=== PATIENT | male | born 1980 | race Hispanic/Latino ===

== ENCOUNTER 2019-04-20 09:54 | Emergency (ER) | payer SELFPAY ==
[2019-04-20] MEDS ORDERED: PANTOPRAZOLE 40 MG INJ IV ONE (11:28)
[2019-04-20] MEDS ORDERED: hydrALAZINE 20 MG/1 ML INJ IV ONE ×2 (11:29→13:00)
--- NOTE | 2019-04-20 11:33 | Emergency Department Report ---
HPI - General Chief Complaint: Abdominal Pain Time Seen by Provider: 04/20/19 11:13 - HPI HPI: 38-year-old male presents to the emergency department with a complaint of upper abdominal pain/pressure, nausea and vomiting and this morning he had an episode of hematemesis. The patient says that he vomited "bright red blood and bile." He has had 2 episodes of vomiting in the past 24 hours. Overall he says that his "abdominal issues" have been going on for the past few weeks. He has a past mental history of hypertension and obstructive sleep apnea for which he uses a CPAP machine. The patient does present with elevated blood pressure and admits to medication noncompliance. He has a very occasional tobacco smoker. He has not taken anything for her symptoms prior to presentation. He goes to [facility]. ED Past Medical Hx - Past Medical History Hx Hypertension: Yes Hx CVA: No Hx Heart Attack/AMI: No Hx Congestive Heart Failure: No Hx Diabetes: No Hx Deep Vein Thrombosis: No Hx Pulmonary Embolism: No Hx GERD: No Hx Liver Disease: No Hx Renal Disease: No Hx Sickle Cell Disease: No Hx Arthritis: No Hx Headaches / Migraines: No Hx Seizures: No Hx Kidney Stones: No Hx Psychiatric Treatment: No Hx Asthma: No Hx COPD: No Hx Tuberculosis: No Hx Dementia: No Hx HIV: No Additional medical history: SLEEP APNEA - Surgical History Hx Coronary Stent: No Hx Open Heart Surgery: No Hx Pacemaker: No Hx Internal Defibrillator: No Hx Cholecystectomy: No Hx Appendectomy: No Hx Breast Surgery: No Additional Surgical History: titanium plates and mesh in face - Social History Smoking Status: Current Some Day Smoker Substance Use Type: Alcohol - Medications Home Medications: Home Medications Medication Instructions Recorded Confirmed Last Taken Type Lisinopril/Hydrochlorothiazide 1 each PO DAILY #30 tablet 08/24/13 Unknown Rx [Zestoretic 20-25 mg] carvediloL [Coreg] 3.125 mg PO BID #60 tablet 08/24/13 Unknown Rx Loperamide [Imodium] 2 mg PO Q2HR PRN #15 capsule 12/26/14 Unknown Rx Ondansetron [Zofran TAB] 4 mg PO Q8HR PRN #21 tablet 12/26/14 Unknown Rx levoFLOXacin [Levaquin TAB] 500 mg PO QDAY #10 tablet 12/26/14 Unknown Rx metroNIDAZOLE [Flagyl TAB] 500 mg PO Q12HR #20 tab 12/26/14 Unknown Rx Cyclobenzaprine HCl [Flexeril 5 MG 5 mg PO TID #20 tab 10/20/15 Unknown Rx TAB] Ibuprofen [Motrin 800 MG tab] 800 mg PO Q8HR PRN #30 tablet 10/20/15 Unknown Rx Omeprazole 20 mg PO QDAY #20 capsule. 04/20/19 Unknown Rx Ondansetron [Zofran Odt] 4 mg PO Q8HR PRN #15 tab.rapdis 04/20/19 Unknown Rx hydroCHLOROthiazide [HCTZ] 25 mg PO QDAY #30 tablet 04/20/19 Unknown Rx lisinopriL [Zestril TAB] 20 mg PO QDAY #30 tablet 04/20/19 Unknown Rx ED Review of Systems ROS: Stated complaint: NAUSEA/ABD PRESSURE/PAIN Other details as noted in HPI Comment: All other systems reviewed and negative Constitutional: denies: chills, fever Eyes: denies: eye pain, vision change ENT: denies: ear pain, throat pain Respiratory: denies: cough, shortness of breath Cardiovascular: denies: chest pain Gastrointestinal: abdominal pain, nausea, vomiting, hematemesis Genitourinary: denies: dysuria, discharge Musculoskeletal: denies: back pain, arthralgia Skin: denies: rash, lesions Neurological: denies: headache, weakness Physical Exam - Physical Exam Vital Signs: Vital Signs 04/20/19 04/20/19 10:17 10:20 Temperature 97.8 F Pulse Rate 94 H Respiratory 16 Rate Blood Pressure 193/132 [Right] O2 Sat by Pulse 98 Oximetry Physical Exam: GENERAL: The patient is well-developed well-nourished. HEENT: Normocephalic. Atraumatic. Patient has moist mucous membranes. EYES: Extraocular motions are intact. NECK: Supple. Trachea is midline. CHEST/LUNGS: Clear to auscultation. There is no respiratory distress noted. HEART/CARDIOVASCULAR: Regular. There is no tachycardia. There is no murmur. ABDOMEN: Abdomen is soft. Mild generalized abdominal tenderness to palpation. No guarding. Patient has normal bowel sounds. There is no abdominal distention. SKIN:Skin is warm and dry. . NEURO: The patient is awake, alert, and oriented. The patient is cooperative. The patient has no focal neurologic deficits. Normal speech. MUSCULOSKELETAL: There is no tenderness or deformity. There is no evidence of acute injury. ED Course Vital Signs 04/20/19 04/20/19 10:17 10:20 Temperature 97.8 F Pulse Rate 94 H Respiratory 16 Rate Blood Pressure 193/132 [Right] O2 Sat by Pulse 98 Oximetry ED Medical Decision Making - Lab Data Result diagrams: 04/20/19 11:34 04/20/19 11:34 - EKG Data -: EKG Interpreted by Me EKG shows normal: sinus rhythm, axis, intervals (prolonged QTC), QRS complexes, ST-T waves Rate: normal - EKG Data When compared to previous EKG there are: previous EKG unavailable Interpretation: other (prolonged QTC. No ST elevation DC) - Radiology Data Radiology results: image reviewed interpreted by me: Abdominal x-ray shows nonspecific nonobstructive bowel gas - Medical Decision Making This patient presents to the emergency department with a complaint of some abdominal pain, nausea and vomiting and an episode of hematemesis, which is what brought him in to be seen today. Overall the abdominal pain, nausea and vomiting have been going on intermittently over the past few weeks. He also presents with elevated blood pressure and admission to medication noncompliance. The patient had a mild leukocytosis of 13,000 but otherwise the rest of his labs are unremarkable including CBC, metabolic panel and urinalysis. Abdominal x-ray shows nonspecific nonobstructive bowel gas. Patient was given some Protonix and Zofran. Patient was also given a few doses of hydralazine for his blood pressure. The blood pressure did improve. Patient was reevaluated multiple times and appears to be resting comfortably. His abdomen is soft, nondistended and nontoxic in appearance. There is been no further episodes of nausea, vomiting or hematemesis. He appears safe for discharge home at this time. He'll be given a refill of his blood pressure medications, lisinopril and HCTZ. He was given a dose of HCTZ prior to discharge. He'll be given a prescription for Zofran and omeprazole. He will be given a referral for gastroenterology. He will return to the emergency Department with any worsening of his symptoms or any acute distress. Appendicitis talk given. - Differential Diagnosis gastritis, colitis, GERD, Laura-De León tear, malignancy Critical Care Time: No Critical care attestation.: If time is entered above; I have spent that time in minutes in the direct care of this critically ill patient, excluding procedure time. ED Disposition Clinical Impression: Noncompliance with medication regimen Hypertension Qualifiers: Hypertension type: essential hypertension Qualified Code(s): I10 - Essential (primary) hypertension Abdominal pain Qualifiers: Abdominal location: generalized Qualified Code(s): R10.84 - Generalized abdominal pain Nausea & vomiting Qualifiers: Vomiting type: unspecified Vomiting Intractability: non-intractable Qualified Code(s): R11.2 - Nausea with vomiting, unspecified Disposition: DC- TO HOME OR SELFCARE Is pt being admited?: No Condition: Stable Instructions: Acute Nausea and Vomiting (ED), Abdominal Pain (ED), Hypertension (ED) Additional Instructions: Please follow up with a primary care physician in the next few days. I'm giving you a referral for [place] [facility] to follow up regarding your abdominal pain and the episode of blood in your vomit. Please return to the emergency department immediately with any recurrence of this, worsening of your symptoms, or with any acute distress. Please try and stay away from foods that are high in salt caffeinated products. Keep a blood pressure log. I am restarting you on your blood pressure medications. Prescriptions: hydroCHLOROthiazide [HCTZ] 25 mg PO QDAY #30 tablet Omeprazole 20 mg PO QDAY #20 capsule. lisinopriL [Zestril TAB] 20 mg PO QDAY #30 tablet Ondansetron [Zofran Odt] 4 mg PO Q8HR PRN #15 tab.rapdis PRN Reason: Nausea Referrals: [facility] [Outside] - 2-3 Days [facility] [Provider Group] - 2-3 Days Time of Disposition: 14:46
[2019-04-20 11:37] LABS: Basophils # (Auto) 0.1 K/mm3 (0.0-0.1); Basophils % (Auto) 0.6 % (0.0-1.8); Eosinophils # (Auto) 0.1 K/mm3 (0.0-0.4); Eosinophils % (Auto) 0.5 % (0.0-4.3); Hematocrit 44.9 % (35.5-45.6); Hemoglobin 15.2 gm/dl (11.8-15.2); Lymphocytes # (Auto) 2.4 K/mm3 (1.2-5.4); Lymphocytes % (Auto) 17.9 % (13.4-35.0); Mean Corpuscular HGB Conc 34 % (32-34); Mean Corpuscular Volume 79 fl (84-94); Monocytes # (Auto) 0.8 K/mm3 (0.0-0.8); Monocytes % (Auto) 5.6 % (0.0-7.3); Platelet Count 341 K/mm3 (140-440); Red Cell Distribution Width 14.3 % (13.2-15.2)
[2019-04-20 11:39] LABS: Bacteria,Urine 4+ /HPF (Negative); Bilirubin,Urine NEG (Negative); Blood,Urine NEG (Negative); Color,Urine Yellow (Yellow); Mucus,Urine 1+ /HPF; Protein,Urine <15 mg/dL mg/dL (Negative); Urobilinogen,Urine < 2.0 mg/dL (<2.0)
[2019-04-20 11:49] LABS: INR 0.98 (0.87-1.13); Partial Thromboplastin Time 27.5 Sec. (24.2-36.6)
[2019-04-20 11:59] LABS: Alanine Aminotransferase 43 units/L (7-56); Albumin 4.3 g/dL (3.9-5); BUN/Creatinine Ratio 9; Blood Urea Nitrogen 9 mg/dL (9-20); Calcium 9.4 mg/dL (8.4-10.2); Hemolysis Index 8
[2019-04-20 12:09] LABS: Bilirubin,Direct < 0.2 mg/dL (0-0.2)
--- NOTE | 2019-04-20 12:52 | XRay Report ---
ABDOMEN 2 VIEW(S) WITH PA CHEST INDICATION / CLINICAL INFORMATION: abd pain. COMPARISON: None available. FINDINGS: CHEST X-RAY: No acute cardiopulmonary abnormality. TUBES / LINES: None. BOWEL GAS PATTERN/EXTRALUMINAL GAS: No significant abnormality. No pneumatosis or secondary signs of free air. ADDITIONAL FINDINGS: No significant additional findings. IMPRESSION: 1. No significant abnormality. Signer Name: You Lisa MD Signed: 04/20/2019 12:48 PM Workstation Name: [id number]
[2019-04-20] MEDS ORDERED: ONDANSETRON 4 MG/2 ML INJ IV ONE (13:15)
[2019-04-20] MEDS ORDERED: hydroCHLOROthiazide 25 MG TAB PO ONE (14:47)
[2019-04-20 15:17] VITALS: BP 182/117
== END 2019-04-20 15:00 | disposition home or self-care (01) ==
LOC: ED 09:54
DX: R10.84 Generalized abdominal pain (principal); R11.2 Nausea with vomiting, unspecified; Z91.14 Patient's other noncompliance with medication regimen; I10 Essential (primary) hypertension
CPT/HCPCS: 36415; 74022; 80048; 80076; 81001; 83690; 85025; 85610; 85730; 93005; 93010; 96374; 96375; 96376; 99284; C9113; J0360; J2405

== ENCOUNTER 2020-06-27 02:24 | Emergency (ER) | payer SELFPAY ==
[2020-06-27] MEDS ORDERED: KETOROLAC 30 MG/1 ML INJ IV ONE (03:40)
[2020-06-27] MEDS ORDERED: dexAMETHasone 20 MG/5 ML VIAL IV ONE (03:40)
--- NOTE | 2020-06-27 03:46 | Emergency Department Report ---
<WOODY ESCALANTE - Last Filed: 06/27/20 03:42> ED General Adult HPI - General Chief complaint: Sore Throat Stated complaint: ANTWON/THROAT PAIN/SWOLLEN Source: patient Mode of arrival: Ambulatory Limitations: No Limitations - History of Present Illness Initial comments: Patient is a 39-year-old white male with a history of morbid obesity, hypertension and sleep apnea who presents to the ED with complaint of acute onset persistent severe sore throat with dysphagia, swollen tonsils and swollen painful anterior right cervical lymph nodes for the last 1 week. Patient states that he has been on liquid diet for the last 3 days and that about 3 hours ago he was unable to sleep because of worsening sore throat and dysphagia. Patient states that he could not even use his CPAP at home because of sore throat and worsening shortness of breath. Patient denies headache, dizziness, fever, chills, nausea, vomiting, chest pain, shortness of breath, cough, abdominal pain, traumatic injury or change in vision, nasal and sinus congestion MD Complaint: Sore throat, dysphagia, right anterior cervical lymph node swelling -: Sudden, week(s) (1) Location: mouth Radiation: non-radiation Severity scale (0 -10): 8 Quality: aching, sharp Consistency: constant Improves with: none Worsens with: eating Associated Symptoms: denies other symptoms. denies: confusion, chest pain, cough, diaphoresis, fever/chills, headaches, loss of appetite, malaise, nausea/vomiting, rash, seizure, shortness of breath, syncope, weakness Treatments Prior to Arrival: none - Related Data Previous Rx's Medication Instructions Recorded Last Taken Type Lisinopril/Hydrochlorothiazide 1 each PO DAILY #30 tablet 08/24/13 Unknown Rx [Zestoretic 20-25 mg] carvediloL [Coreg] 3.125 mg PO BID #60 tablet 08/24/13 Unknown Rx Loperamide [Imodium] 2 mg PO Q2HR PRN #15 capsule 12/26/14 Unknown Rx Ondansetron [Zofran TAB] 4 mg PO Q8HR PRN #21 tablet 12/26/14 Unknown Rx levoFLOXacin [Levaquin TAB] 500 mg PO QDAY #10 tablet 12/26/14 Unknown Rx metroNIDAZOLE [Flagyl TAB] 500 mg PO Q12HR #20 tab 12/26/14 Unknown Rx Cyclobenzaprine HCl [Flexeril 5 MG 5 mg PO TID #20 tab 10/20/15 Unknown Rx TAB] Ibuprofen [Motrin 800 MG tab] 800 mg PO Q8HR PRN #30 tablet 10/20/15 Unknown Rx Omeprazole 20 mg PO QDAY #20 capsule. 04/20/19 Unknown Rx Ondansetron [Zofran Odt] 4 mg PO Q8HR PRN #15 tab.rapdis 04/20/19 Unknown Rx hydroCHLOROthiazide [HCTZ] 25 mg PO QDAY #30 tablet 04/20/19 Unknown Rx lisinopriL [Zestril TAB] 20 mg PO QDAY #30 tablet 04/20/19 Unknown Rx Allergies Allergy/AdvReac Type Severity Reaction Status Date / Time No Known Allergies Allergy Verified 10/19/15 21:46 ED Review of Systems Constitutional: denies: chills, fever Eyes: denies: eye pain, eye discharge, vision change ENT: throat pain, other (Dysphagia and dysphonia). denies: ear pain Respiratory: denies: cough, shortness of breath, SOB with exertion, wheezing Cardiovascular: denies: chest pain, palpitations Endocrine: no symptoms reported Gastrointestinal: denies: abdominal pain, nausea, vomiting, diarrhea Genitourinary: denies: urgency, dysuria, frequency Musculoskeletal: denies: back pain, joint swelling, arthralgia Skin: denies: rash, lesions Neurological: denies: headache, weakness, paresthesias Psychiatric: denies: anxiety, depression Hematological/Lymphatic: denies: easy bleeding, easy bruising ED Past Medical Hx - Past Medical History Hx Hypertension: Yes Hx CVA: No Hx Heart Attack/AMI: No Hx Congestive Heart Failure: No Hx Diabetes: No Hx Deep Vein Thrombosis: No Hx Pulmonary Embolism: No Hx GERD: No Hx Liver Disease: No Hx Renal Disease: No Hx Sickle Cell Disease: No Hx Arthritis: No Hx Headaches / Migraines: No Hx Seizures: No Hx Kidney Stones: No Hx Psychiatric Treatment: No Hx Asthma: No Hx COPD: No Hx Tuberculosis: No Hx Dementia: No Hx HIV: No Additional medical history: SLEEP APNEA - Surgical History Hx Coronary Stent: No Hx Open Heart Surgery: No Hx Pacemaker: No Hx Internal Defibrillator: No Hx Cholecystectomy: No Hx Appendectomy: No Hx Breast Surgery: No Additional Surgical History: titanium plates and mesh in face - Social History Smoking Status: Never Smoker - Medications Home Medications: Home Medications Medication Instructions Recorded Confirmed Last Taken Type Lisinopril/Hydrochlorothiazide 1 each PO DAILY #30 tablet 08/24/13 Unknown Rx [Zestoretic 20-25 mg] carvediloL [Coreg] 3.125 mg PO BID #60 tablet 08/24/13 Unknown Rx Loperamide [Imodium] 2 mg PO Q2HR PRN #15 capsule 12/26/14 Unknown Rx Ondansetron [Zofran TAB] 4 mg PO Q8HR PRN #21 tablet 12/26/14 Unknown Rx levoFLOXacin [Levaquin TAB] 500 mg PO QDAY #10 tablet 12/26/14 Unknown Rx metroNIDAZOLE [Flagyl TAB] 500 mg PO Q12HR #20 tab 12/26/14 Unknown Rx Cyclobenzaprine HCl [Flexeril 5 MG 5 mg PO TID #20 tab 10/20/15 Unknown Rx TAB] Ibuprofen [Motrin 800 MG tab] 800 mg PO Q8HR PRN #30 tablet 10/20/15 Unknown Rx Omeprazole 20 mg PO QDAY #20 capsule.dr 04/20/19 Unknown Rx Ondansetron [Zofran Odt] 4 mg PO Q8HR PRN #15 tab.rapdis 04/20/19 Unknown Rx hydroCHLOROthiazide [HCTZ] 25 mg PO QDAY #30 tablet 04/20/19 Unknown Rx lisinopriL [Zestril TAB] 20 mg PO QDAY #30 tablet 04/20/19 Unknown Rx ED Physical Exam - General Limitations: No Limitations General appearance: alert, in no apparent distress, obese - Head Head exam: Present: atraumatic, normocephalic, normal inspection - Eye Eye exam: Present: normal appearance, PERRL, EOMI Pupils: Present: normal accommodation - ENT ENT exam: Present: mucous membranes moist, TM's normal bilaterally, normal external ear exam, other (Swollen, erythematous bilateral tonsils and oropharynx) - Neck Neck exam: Present: normal inspection, full ROM, lymphadenopathy (Anterior cervical lymphadenopathy) - Respiratory Respiratory exam: Present: normal lung sounds bilaterally. Absent: respiratory distress, wheezes, rales, rhonchi, chest wall tenderness, accessory muscle use - Cardiovascular Cardiovascular Exam: Present: normal rhythm, tachycardia, normal heart sounds. Absent: systolic murmur, diastolic murmur, rubs, gallop - GI/Abdominal GI/Abdominal exam: Present: soft, normal bowel sounds. Absent: distended, tenderness, guarding, rebound, hyperactive bowel sounds, hypoactive bowel sounds - Extremities Exam Extremities exam: Present: normal inspection, full ROM, normal capillary refill - Back Exam Back exam: Present: normal inspection, full ROM. Absent: tenderness, CVA tenderness (R), CVA tenderness (L), muscle spasm, paraspinal tenderness - Neurological Exam Neurological exam: Present: alert, oriented X3, CN II-XII intact, normal gait, reflexes normal - Psychiatric Psychiatric exam: Present: normal affect, normal mood, anxious - Skin Skin exam: Present: warm, dry, intact, normal color. Absent: rash ED Medical Decision Making - Medical Decision Making This is a 39-year-old white male with a history of morbid obesity, hypertension and sleep apnea who presents to the ED with complaint of acute onset persistent severe sore throat with dysphagia, swollen tonsils and swollen painful anterior right cervical lymph nodes for the last 1 week. Patient states that he has been on liquid diet for the last 3 days and that about 3 hours ago he was unable to sleep because of worsening sore throat and dysphagia. Patient states that he could not even use his CPAP at home because of sore throat and worsening shortness of breath. In the ED, patient is alert and oriented x3 and is not in distress but anxious and tachycardic in triage. Patient was treated with Decadron, Toradol and also started on clindamycin 900 mg IV x1. Patient also received normal saline 1 L IV bolus x1. Basic labs are drawn and soft tissue neck CT scan with contrast was also ordered. - Differential Diagnosis Peritonsillar abscess; strep pharyngitis; bacterial tonsillitis; allergy ED Disposition Clinical Impression: Acute bacterial pharyngitis, Anterior cervical lymphadenopathy, Acute bacterial tonsillitis, Peritonsillar abscess Disposition: DC/TX-70 ANOTHER TYPE HLTHCARE Is pt being admited?: No Does the pt Need Aspirin: No Condition: Stable Instructions: Peritonsillar Abscess <ANANAY SETHI - Last Filed: 06/27/20 09:51> ED Review of Systems ROS: Stated complaint: ANTWON/THROAT PAIN/SWOLLEN Other details as noted in HPI ED Course Vital Signs 06/27/20 02:28 Temperature 98.4 F Pulse Rate 117 H Respiratory 18 Rate Blood Pressure 200/123 O2 Sat by Pulse 96 Oximetry - Reevaluation(s) Reevaluation #1: 06/27/20 09:50 After multiple attempts to drain the peritonsillar abscess that were unsuccessful I discussed the case with the ENT Dr. Khanna who agreed to see the patient in the ER at [facility]. Patient was agreeable to this transfer. He had already been given IV steroids, antibiotics, Toradol and is still tolerating his secretions well. - Consultations Consultation #1: 06/27/20 09:[address] [place] [address] Khanna (ENT) he agreed to see the patient in consult and requested we sent him to [facility] ED. Consultation #2: 06/27/20 09:[address] Rasmussen (ED) she accepted patient to their ED for ENT evaluation. - I & D Right Type of Procedure: Complex Site: right peritonsilar Blade Size: 18G needle Progress: patient tolerated ED Medical Decision Making - Lab Data Result diagrams: 06/27/20 03:40 06/27/20 03:40 Lab Results 06/27/20 06/27/20 06/27/20 Range/Units 03:40 03:40 06:00 WBC 22.3 H (4.5-11.0) K/mm3 RBC 4.94 (3.65-5.03) M/mm3 Hgb 12.9 (11.8-15.2) gm/dl Hct 39.1 (35.5-45.6) % MCV 79 L (84-94) fl MCH 26 L (28-32) pg MCHC 33 (32-34) % RDW 14.4 (13.2-15.2) % Plt Count 369 (140-440) K/mm3 Sodium 136 L (137-145) mmol/L Potassium 3.8 (3.6-5.0) mmol/L Chloride 97.5 L (98-107) mmol/L Carbon Dioxide 23 (22-30) mmol/L Anion Gap 19 mmol/L BUN 13 (9-20) mg/dL Creatinine 1.1 (0.8-1.3) mg/dL Estimated GFR > 60 ml/min BUN/Creatinine Ratio 12 % Glucose 119 H (75-100) mg/dL Calcium 8.5 (8.4-10.2) mg/dL Total Bilirubin 0.50 (0.1-1.2) mg/dL AST 20 (5-40) units/L ALT 38 (7-56) units/L Alkaline Phosphatase 137 H (35-129) units/L Total Protein 7.2 (6.3-8.2) g/dL Albumin 3.9 (3.9-5) g/dL Albumin/Globulin Ratio 1.2 % Group A Strep Rapid Positive A (Negative) - Radiology Data Radiology results: report reviewed - Medical Decision Making Patient be transferred to [facility] emergency department for ENT evaluation Critical care attestation.: If time is entered above; I have spent that time in minutes in the direct care of this critically ill patient, excluding procedure time. ED Disposition Is pt being admited?: No Does the pt Need Aspirin: No Time of Disposition: 09:47
[2020-06-27 07:01] LABS: Hematocrit 39.1 % (35.5-45.6); Hemoglobin 12.9 gm/dl (11.8-15.2); Mean Corpuscular HGB Conc 33 % (32-34); Mean Corpuscular Volume 79 fl (84-94); Platelet Count 369 K/mm3 (140-440); Red Blood Count 4.94 M/mm3 (3.65-5.03); Red Cell Distribution Width 14.4 % (13.2-15.2)
[2020-06-27 07:14] LABS: Alanine Aminotransferase 38 units/L (7-56); Albumin 3.9 g/dL (3.9-5); BUN/Creatinine Ratio 12; Blood Urea Nitrogen 13 mg/dL (9-20); Calcium 8.5 mg/dL (8.4-10.2); Hemolysis Index 5
[2020-06-27] MEDS ORDERED: LIDOCAINE (1%) 10 MG/1 ML VIAL 20 ML MDV INFILTRATI ONE (07:33)
[2020-06-27] MEDS ORDERED: BENZOCAINE 20% TOP SPRAY 0.5 ML UNIT DOSE MM SCH (08:00)
[2020-06-27] MEDS ORDERED: BENZOCAINE 20% TOP SPRAY 0.5 ML UNIT DOSE MM NR (10:00)
[2020-06-27 13:02] LABS: Total Cells Counted 100
[2020-06-27 13:15] LABS: Platelet Estimate Consistent w Auto; RBC Morphology Normal
[2020-06-27 13:23] VITALS: BP 162/113
--- NOTE | 2020-07-01 11:34 | Cat Scan Report ---
CT NECK WITH INTRAVENOUS CONTRAST AND MULTIPLANAR RECONSTRUCTION CLINICAL HISTORY: Pt complains of a sore throat - possible Peritonsillar Abscess TECHNIQUE: 2.5 mm thick contiguous axial scans were obtained from the skull base down to the aortic arch during intravenous contrast administration. In addition to evaluation of axial source images sagittal and co mohan multiplanar reconstructions were produced and reviewed for this report. Contrast dose report: Omnipaque 300: 100 ML administered intraven[address] All [address] scans at this location are performed using CT dose reduction for ALARA by means of automated e xposure control. NOTE: this study was performed at about 0325 hours Central standard time. I was first notified that t he examination was performed and available for review at about 0410 hours Central standard time. The reason for this delay is unknown to me. FINDINGS: AIRWAY: Tonsillar enlargement is noted bilaterally, right greater than left. An irregularly marginated low-at tenuation region in the right tonsil measuring about 2 cm in diameter represents a tonsillar abscess. In addition there is abnormal soft tissue fullness extending inferior from the tonsil in the right p arapharyngeal region down to the level of the piriform sinus. This represents a parapharyngeal phlegm on or abscess. Inferiorly, a fairly well circumscribed area of decreased attenuation is seen adjacent to the medial aspect of the hyoid bone where a second more focal abscess may be present. Tonsillar enlargement narrows the airway in the region of the oropharynx. Correlation with clinical a ssessment of the adequacy of the patient's airway is advised. No additional abnormalities are seen along the course of the airway. LYMPH NODES: Reactive lymphadenopathy is observed bilaterally. The largest lymph nodes measure up to 23 mm in diameter on the right. Small reactive lymph nodes are seen in the right level 3 region. ORAL CAVITY/FLOOR OF MOUTH: No abnormalities are seen in evaluation of the oral cavity and tongue. Th e floor the mouth has a normal appearance. MAJOR SALIVARY GLANDS: The parotid and submandibular salivary glands have a normal appearance. NASAL CAVITY AND PARANASAL SINUSES: Evaluation of the nasal cavity is remarkable for soft tissue atte nuation mass in the left nasal cavity. This is contact with the left middle turbinate and nasal septu m. The lesion measures about 19 x 19 x 13 mm in overall dimension. This could represent a polyp or ne oplastic lesion. Further evaluation with nasal endoscopy by ENT is advised.. Mild mucosal thickening is present in both maxillary sinuses. ORBITS: Patient is status post repair of a left orbital floor fracture. The orbits are partially excl uded from this examination. THYROID GLAND: The thyroid gland is normal in size and homogeneous in attenuation. No focal thyroid l esions are identified. TEMPORAL BONES:Mastoid air cells are normally pneumatized. CERVICAL SPINE: Evaluation of the cervical spine reveals no significant abnormality. Normal alignment is maintained. No significant degenerative changes are identified. LUNG APICES: Evaluation of the lung apices reveals no abnormality. There is no indication of lung nod ule or infiltrate. The visualized portions of the superior mediastinum have an unremarkable appearanc e. CONTRAST ADMINISTRATION: Enhancement of normal vascular structures is demonstrated. No areas of abnor mal contrast enhancement are identified. IMPRESSION: 1. This abnormal study demonstrates a right tonsillar abscess with right parapharyngeal phlegmon and possible smaller abscess adjacent to the hyoid bone. 2. 19 x 19 x 13 mm left nasal cavity mass. Further evaluation with nasal endoscopy by ENT is advised. Signer Name: Mauircio Mcbride MD Signed: 06/27/2020 5:27 AM Workstation Name: [id number]
== END 2020-06-27 13:30 | disposition other institution (70) ==
LOC: ED 02:24
DX: J02.8 Acute pharyngitis due to other specified organisms (principal); B96.89 Other specified bacterial agents as the cause of diseases classified elsewhere; R59.1 Generalized enlarged lymph nodes; I10 Essential (primary) hypertension; Z79.899 Other long term (current) drug therapy
CPT/HCPCS: 36415; 70491; 80053; 85007; 85025; 87430; 96365; 96375; 99285; J1100; J1885; Q9967